=== PATIENT | female | born 1945 | race Caucasian/White ===

== ENCOUNTER → 2016-11-17 | Outpatient (CLI) | payer MEDICARE, OTHER ==
[~2016-11-17] MED LIST: DULO60CA6 PO
--- NOTE | 2016-11-17 11:52 | RADRPT ---
PROCEDURE: XR Right hip and pelvis. CLINICAL INDICATION: Right hip pain. Pelvic pain. TECHNIQUE: Two views. Frontal pelvis and lateral right hip. COMPARISON: 08/11/2016. FINDINGS: There are bilateral total hip arthroplasties which appears satisfactory. There is no fracture, disl ocation, or loosening. There is no lytic or blastic lesion. The soft tissues are normal. The upper pelvis is not completely included on the image. IMPRESSION: 1. Satisfactory postoperative appearance of both hips. 2. Upper pelvis not included on the image. RPTAT: QQ .Michael Pérez MD, MD Date Time Electronically viewed and signed by .Michael Pérez MD, on 11/17/2016 11:52 .R/
--- NOTE | 2016-11-17 19:31 | HKNOTE ---
DATE OF SERVICE: 11/17/2016 The patient comes in for checkup on her right hip. She had a right hip replacement 6 months ago. She lives in [place] and it took her 5 hours to get here. The patient's right hip dislocated 1 month after her surgery and had to be relocated at a hospital [facility]. 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 She exercises and flexes every day. She can walk without a walking aid, but she has this weakness of her right leg, so it is difficult for her to ge t out of a chair or even to get out of bed. Consequently, she sleeps in a reclining chair. She loo ked into getting a reclining bed, but she has not bought one because it is "too expensive." PHYSICAL EXAMINATION: VITAL SIGNS: Height 5 foot 8 inches, weight 240 pounds. Blood pressure 155/80, temperature 97.8. GAIT: The patient has marked weakness of the right hip flexors. In the sitting position, she can r aise her knee about 3 inches from a 90 degrees point. She walks without a walking aid and one can h ardly tell that she has even had surgery, let alone that she has weakness of the hip flexors. IMAGING: X-rays of the right hip obtained today show all components to be in good orientation and w ell attached to the bone. MANAGEMENT: I will look into obtaining either an electrical bed for her, or at the very least, an o verhead trapeze for her bed. The patient will be seen again in 6 months' time for reevaluation. Dictated By: JOSE MORATAYA/KENISHA Conf#: [id number] DID#: [id number]
== END | disposition home or self-care (01) ==
LOC: HKI 09:32
DX: R53.1 Weakness (principal); Z96.641 Presence of right artificial hip joint
CPT/HCPCS: 73502; G0463

== ENCOUNTER → 2017-06-08 | Outpatient (CLI) | payer MEDICARE, OTHER ==
--- NOTE | 2017-06-08 16:59 | PN ---
Date/Time of Note Date/Time of Note DATE: 06/08/17 TIME: 16:54 Outpatient Progress Note Chief Complaint One-year follow-up status post right total hip replacement HPI 71-year-old female presents today for one-year postoperative appointment status post right total hip arthroplasty performed on 04/17/2016. Patient states that she has been doing well in regards to the right hip. Denies any pain to the hip. Patient's only complaint is that she continues with weakness with flexion to the right hip. She denies any falls or injury. Patient has had several postoperative physical therapies in which she states helped especially her aqua therapy sessions in which at one point, she was taking them 5 times a week. She continues with weakness with flexion to the right hip. She states that overall there is no pain but there has been 3 occasions over the past year where she had a sudden twitch or sudden movement to the hip that created moderate pain that was self-limiting over 48-72 hour span. Patient is also been very active as she has lost 25 pounds with regular exercise and diet. Patient can now rise to standing independently and on her last visit she was unable to do so. Overall she is very happy status post surgery as she feels that her functionality has significantly improved but she does continue to have some concern with weakness on flexion at the right hip joint. Review of Systems Const: No Fever, no chills, no Fatigue, normal appetite, no diaphoresis. Resp: No SOB, no wheezing, no chest pain. CV: No chest pain, no palpitaions, no VALENZUELA. Physical Exam Blood pressure is 120/66, temperature is 98.7, pulse is 98, respiratory rate is 12, height is 5 foot 8 inches, weight is 238 pounds General Appearance: well-developed, well-nourished, in no acute distress. Right hip: Well-healed surgical scar. While in a seated position patient is able to flex the hip and additional 2 inches and hold for 10 seconds before expressing give way weakness. While lying supine she is able to flex up to 45 actively. While in a standing position she is able to flex up to 60 actively. Full extension. 5/5 strength on extension, flexion, abduction and adduction. No pain with range of motion. No tenderness to palpation. Negative Homans sign. Normal sensory examination to light touch. Imaging X-ray of the right hip performed on 06/08/2017 showing all components appearing well aligned, attached and integrated to the bone. No signs of any lucency between metal and bone. Allergies Coded Allergies: No Known Drug Allergies (Verified Allergy, Unknown, 01/26/14) Assessment/Plan * At home exercises to improve strengthening with hip flexion discussed today with patient. Dr. Trimble was present for discussion. * Follow-up 6 months for repeat evaluation to see if there is improved strengthening in regards to flexion of the hip. * Anti-inflammatories as needed for pain. Patient made aware that dental prophylaxis will be necessary prior to any dental procedure for the remainder of their lifetime. Patient is aware that they must contact their dentist prior to any procedure to inform them of previous joint replacement with prosthesis implant so appropriate antibiotic may be prescribed to lower risk of joint infection status post surgery. Card will also serve as confirmation should patient be traveling and have to go through security such as at an airport. Dr. Trimble was present for examination today and agrees with plan. Medications Home Meds Reported Medications Duloxetine Hcl* (Cymbalta*) 60 Mg Capsule., 60 MG PO DAILY 01/26/14 TATYANA WALKER PA-C Jun 08, 2017 16:59
--- NOTE | 2017-06-08 17:11 | RADRPT ---
PROCEDURE: XR Right hip and pelvis. CLINICAL INDICATION: Right hip pain. Pelvic pain. Postop. TECHNIQUE: Two views. Frontal pelvis and lateral right hip. COMPARISON: 11/17/2016. FINDINGS: There are bilateral total hip arthroplasties. These appear satisfactory with no fracture, dislocati on, or loosening. There is no lytic or blastic lesion. The upper pelvis is not completely included on the image. IMPRESSION: 1. Satisfactory postoperative appearance of both hips. RPTAT: QQ .Michael Pérez MD, MD Date Time Electronically viewed and signed by .Michael Pérez MD, MD on 06/08/2017 17:11 .R/
== END | disposition home or self-care (01) ==
LOC: HKI 13:35
DX: Z47.1 Aftercare following joint replacement surgery (principal); Z96.641 Presence of right artificial hip joint; R53.1 Weakness
CPT/HCPCS: 73502; G0463